=== PATIENT | female | born 1990 | race Caucasian/White ===

== ENCOUNTER → 2021-01-01 | Day surgery (SDC) | payer OTHER ==
[~2021-01-01] MED LIST: ASMANEX220 MC2 INH; BUPRENORPHIN-N1 EACH PO; GABAPENTIN600 MG PO; GENERLAC10 GM/15 M PO
[2021-01-01 08:22] LABS: HEMOGLOBIN 15.7 gm/dl (12.3-15.3); RED BLOOD COUNT 4.9 M/UL (4.00-5.10); WHITE BLOOD COUNT 7.2 K/UL (4.5-11.0)
== END | disposition home or self-care (01) ==
LOC: OR 07:20
PROVIDERS: Obstetrics & Gynecology
PROC: 0UQGXZZ Repair Vagina, External Approach (ICD-10-PCS; principal; 2021-01-01 07:45)
DX: N89.8 Other specified noninflammatory disorders of vagina (principal); J44.9 Chronic obstructive pulmonary disease, unspecified; K21.9 Gastro-esophageal reflux disease without esophagitis; F41.1 Generalized anxiety disorder; F33.9 Major depressive disorder, recurrent, unspecified; G43.009 Migraine without aura, not intractable, without status migrainosus; F17.210 Nicotine dependence, cigarettes, uncomplicated; M19.90 Unspecified osteoarthritis, unspecified site; N19 Unspecified kidney failure; E16.2 Hypoglycemia, unspecified; M54.5 Low back pain; Z79.891 Long term (current) use of opiate analgesic; Z79.899 Other long term (current) drug therapy; Z88.0 Allergy status to penicillin; Z88.8 Allergy status to other drugs, medicaments and biological substances; Z91.012 Allergy to eggs; Z86.73 Personal history of transient ischemic attack (TIA), and cerebral infarction without residual deficits
CPT/HCPCS: 36415; 81001; 84703; 85025; J1885; J2001; J2250; J2405; J2704; J3010; J7120

== ENCOUNTER 2021-01-05 20:07 | Emergency (ER) | payer OTHER | END 2021-01-05 22:50 | disposition left against medical advice (07) | LOC: ER1 20:07 | DX: Z53.21 Procedure and treatment not carried out due to patient leaving prior to being seen by health care provider (principal) ==

== ENCOUNTER 2021-12-16 13:57 | Emergency (ER) | payer OTHER ==
[2021-12-16 15:17] LABS: HEMOGLOBIN 17.5 gm/dl (12.3-15.3); RED BLOOD COUNT 5.26 M/UL (4.00-5.10); WHITE BLOOD COUNT 8.9 K/UL (4.5-11.0)
[2021-12-16 15:42] LABS: BUN/CREATININE RATIO 19 (0-10)
== END 2021-12-16 16:52 | disposition home or self-care (01) ==
LOC: ER1 13:57
PROVIDERS: Emergency Medicine
DX: R51.9 Headache, unspecified (principal); F22 Delusional disorders; F17.200 Nicotine dependence, unspecified, uncomplicated
CPT/HCPCS: 70450; 80053; 80307; 81001; 84703; 85025; 96374; 96375; 99284; J1200; J1885; J2765

== ENCOUNTER 2022-05-22 18:15 | Emergency (ER) | payer OTHER | END 2022-05-22 18:21 | disposition left against medical advice (07) | LOC: ER1 18:15 | DX: Z53.21 Procedure and treatment not carried out due to patient leaving prior to being seen by health care provider (principal) ==

== ENCOUNTER 2022-05-28 18:49 | Emergency (ER) | payer OTHER ==
[2022-05-28 19:55] LABS: HEMOGLOBIN 14.1 gm/dl (12.3-15.3); RED BLOOD COUNT 4.31 M/UL (4.00-5.10); WHITE BLOOD COUNT 11.8 K/UL (4.5-11.0)
[2022-05-28 20:21] LABS: BUN/CREATININE RATIO 14 (0-10)
== END 2022-05-28 20:20 | disposition left against medical advice (07) ==
LOC: ER1 18:49
PROVIDERS: Family Medicine
DX: F41.9 Anxiety disorder, unspecified (principal); F11.10 Opioid abuse, uncomplicated; F17.200 Nicotine dependence, unspecified, uncomplicated
CPT/HCPCS: 80053; 80307; 81001; 82550; 82553; 83605; 83690; 84484; 84703; 85025; 93005; 96374; 99283; G0480; J2310